=== PATIENT | female | born 1995 | race Caucasian/White ===

== ENCOUNTER 2020-04-26 15:27 | Inpatient (IN) | payer MEDICAID ==
[~2020-04-26] VITALS: Ht 157.5 cm; Wt 88.0 kg
[2020-04-26] MEDS ORDERED: OLAN5TAB40 PO (18:56)
[2020-04-26] MEDS ORDERED: SERT50TA12 PO (18:56)
[2020-04-26] MEDS ORDERED: QUET100T PO (18:56)
[2020-04-26] MEDS: LORazepam 2 MG TABLET PO PRN (19:57)
[2020-04-26] MEDS: HALOPERIDOL 5 MG TABLET PO PRN (19:57)
[2020-04-26] MEDS ORDERED: INFLUENZA VIRUS VACCINE QVS 2020-21 (6MO+)/PF 60 MCG/0.5 ML SYRINGE IM ONE (20:00)
[2020-04-26 20:03] VITALS: BP 140/90
[2020-04-26] MEDS: ZOLPIDEM TARTRATE 10 MG TABLET PO PRN (21:01)
[2020-04-27 04:13] VITALS: BP 100/60
[2020-04-27] MEDS ORDERED: DOCUSATE SODIUM 100 MG CAPSULE PO PRN (07:45)
[2020-04-27] MEDS ORDERED: CloNIDine HCL 0.1 MG TABLET PO PRN (07:45)
[2020-04-27] MEDS ORDERED: PETROLATUM,WHITE 28 GM JELLY TP PRN (07:45)
[2020-04-27] MEDS ORDERED: MAGNESIUM HYDROXIDE SUSPENSION 30 ML UDCUP PO PRN (07:45)
[2020-04-27] MEDS ORDERED: MAG HYDROX/AL HYDROX/SIMETH ES 30 ML SUSPENSION UDCUP PO PRN (07:45)
[2020-04-27] MEDS ORDERED: LOPERAMIDE HCL 2 MG CAPSULE PO PRN (07:45)
[2020-04-27] MEDS ORDERED: NICOTINE 14 MG/24 HOUR PATCH TD PRN (07:45)
[2020-04-27] MEDS ORDERED: GuaiFENesin/D-METHORPHAN [SUGAR-FREE] 200-20MG/10 ML SYRUP UDCUP PO PRN (07:45)
[2020-04-27] MEDS ORDERED: ONDANSETRON HCL 4 MG TABLET PO PRN (07:45)
[2020-04-27] MEDS ORDERED: ALBUTEROL SULFATE HFA 90 MCG/PUFF 8 GM INHALER IH PRN (07:45)
[2020-04-27] MEDS: ACETAMINOPHEN 325 MG TABLET PO PRN ×2 (08:48→17:32)
[2020-04-27 09:19] VITALS: BP 117/64
[2020-04-27] MEDS: SERTRALINE HCL 50 MG TABLET PO SCH (12:55)
[2020-04-27 16:24] VITALS: BP 120/70
[2020-04-27] MEDS: LORazepam 2 MG TABLET PO PRN (17:32)
[2020-04-27] MEDS: HALOPERIDOL 5 MG TABLET PO PRN (17:32)
[2020-04-27] MEDS: OLANZapine 10 MG RAPDIS TABLET PO SCH (20:20)
[2020-04-27] MEDS: ZOLPIDEM TARTRATE 10 MG TABLET PO PRN (20:29)
[2020-04-28] VITALS (10 sets, daily range): BP systolic 91–136; BP diastolic 60–80
[2020-04-28 07:37] LABS: BASOPHILS % (AUTO) 0.4 % (0.0-2.0); EOSINOPHILS % (AUTO) 1.8 % (1.0-6.0); HEMATOCRIT 39.2 % (36-46); HEMOGLOBIN 13.3 g/dL (12.0-16.0); LYMPHOCYTES # (AUTO) 1.8 K/uL (1.0-4.8); LYMPHOCYTES % (AUTO) 16.6 % (22.0-44.0); MEAN CORPUSCULAR HEMOGLOBIN 31.2 pg (26.0-34.0); MEAN CORPUSCULAR HGB CONC 33.9 G/dL (31.0-37.0); MEAN CORPUSCULAR VOLUME 92 fL (80-100); MONOCYTES # (AUTO) 0.8 K/uL (0.1-1.0); NEUTROPHILS # (AUTO) 8.2 K/uL (1.8-7.7); NEUTROPHILS % (AUTO) 74.2 % (40.0-70.0); PLATELET COUNT (AUTO) 370 K/uL (150-450); RED BLOOD CELL COUNT(AUTO) 4.26 MIL/uL (4.00-5.20); RED CELL DISTRIBUTION WIDTH 13.5 % (11.5-14.5)
[2020-04-28 08:19] LABS: ALANINE AMINOTRANSFERASE 115 U/L (12-78); ALBUMIN 3.6 g/dL (3.4-5.0); ALKALINE PHOSPHATASE 61 U/L (46-116); ANION GAP 5 mmol/L (8-16); ASPARTATE AMINOTRANSFERASE 54 U/L (15-37); BILIRUBIN,TOTAL 0.9 mg/dL (0.1-1.0); CARBON DIOXIDE 31 mmol/L (22-29); CHLORIDE 106 mmol/L (98-107); CHOL/HDL RATIO 2.9 (3.9-5.7); CHOLESTEROL 195 mg/dL (131-200); CREATININE 0.65 mg/dL (0.60-1.30); FREE T4 (FREE THYROXINE) 0.71 ng/dL (0.76-1.46); GLOMERULAR FILTR. RATE CALC > 60 mL/min (>60); GLUCOSE,RANDOM 90 mg/dL (70-110); HCG,QUANTITATIVE 2 mIU/mL (0-6); HDL CHOLESTEROL 67 mg/dL (40-60); LDL CHOL (CALC.) 105 mg/dL (0-130); POTASSIUM 4.1 mmol/L (3.5-5.1); SODIUM SERUM 142 mmol/L (136-145); TOTAL PROTEIN, SERUM 7.1 g/dL (6.4-8.2); TRIGLYCERIDES 115 mg/dL (15-150); UREA NITROGEN, BLOOD 12 mg/dL (7-18)
[2020-04-28] MEDS: SERTRALINE HCL 50 MG TABLET PO SCH (08:27)
[2020-04-28 08:29] LABS: HEMOGLOBIN A1C 5.1 % (3.8-5.6)
[2020-04-28 08:38] LABS: THYROID STIMULATING HORMONE 1.76 uIU/mL (0.36-3.74)
[2020-04-28] MEDS: LORazepam 2 MG TABLET PO PRN ×2 (08:48→17:20)
[2020-04-28] MEDS: ACETAMINOPHEN 325 MG TABLET PO PRN ×2 (11:51→19:07)
[2020-04-28] MEDS: IBUPROFEN 400 MG TABLET PO PRN (17:17)
[2020-04-28] MEDS: HALOPERIDOL 5 MG TABLET PO PRN (17:20)
[2020-04-28] MEDS: ZOLPIDEM TARTRATE 10 MG TABLET PO PRN (20:05)
[2020-04-28] MEDS: OLANZapine 10 MG RAPDIS TABLET PO SCH (20:13)
[2020-04-28] MEDS ORDERED: LORazepam 2 MG/ML VIAL IM ONE (20:15)
[2020-04-28] MEDS ORDERED: HALOPERIDOL LACTATE 5 MG/ML VIAL IM ONE (20:15)
[2020-04-28] MEDS ORDERED: DiphenhydrAMINE HCL 50 MG/ML VIAL IM ONE (20:15)
[2020-04-29 04:54] VITALS: BP 110/62
[2020-04-29 08:45] LABS: APPEARANCE,URINE CLOUDY (CLEAR); BILIRUBIN,URINE NEGATIVE (NEGATIVE); GLUCOSE, URINE (UA) NEGATIVE (NEGATIVE); KETONES,URINE NEGATIVE (NEGATIVE); LEUKOCYTE ESTERASE ,URINE NEGATIVE (NEGATIVE); NITRATE,URINE NEGATIVE (NEGATIVE); OCCULT BLOOD,URINE NEGATIVE (NEGATIVE); PROTEIN,URINE NEGATIVE (NEGATIVE); UROBILINOGEN,URINE 0.2 mg/dL (<=1.0)
[2020-04-29 08:47] LABS: AMPHET/METH SCREEN,URINE NEGATIVE (NEGATIVE); BARBITURATE SCREEN, URINE NEGATIVE (NEGATIVE); BENZODIAZEPINES SCREEN,URINE NEGATIVE (NEGATIVE); CANNABINOID SCREEN,URINE NEGATIVE (NEGATIVE); COCAINE SCREEN,URINE NEGATIVE (NEGATIVE); METHADONE SCREEN, URINE NEGATIVE (NEGATIVE); OPIATE SCREEN,URINE NEGATIVE (NEGATIVE)
[2020-04-29 08:50] LABS: PHENCYCLIDINE SCREEN,URINE NEGATIVE (NEGATIVE)
[2020-04-29] MEDS: LORazepam 2 MG TABLET PO PRN ×2 (09:01→18:34)
[2020-04-29] MEDS: SERTRALINE HCL 50 MG TABLET PO SCH (09:01)
[2020-04-29 09:08] LABS: AMORPHOUS SEDIMENT,UR Many /LPF (None Seen); BACTERIA,URINE None Seen /HPF (None Seen); RBC,URINE None Seen /HPF (0-2); SQUAMOUS EPITHELIAL CELL,UR Few /LPF (None Seen); WBC,URINE None Seen /HPF (0-5)
[2020-04-29] MEDS: ACETAMINOPHEN 325 MG TABLET PO PRN ×2 (12:26→17:49)
[2020-04-29 18:17] VITALS: BP 121/76
[2020-04-29] MEDS: OLANZapine 10 MG RAPDIS TABLET PO SCH (20:07)
[2020-04-29] MEDS: IBUPROFEN 400 MG TABLET PO PRN (20:07)
[2020-04-30 02:35] VITALS: BP 120/78
[2020-04-30] MEDS: LORazepam 2 MG TABLET PO PRN ×2 (09:22→16:10)
[2020-04-30] MEDS: SERTRALINE HCL 50 MG TABLET PO SCH (09:22)
[2020-04-30] MEDS: OLANZapine 5 MG TABLET PO SCH (09:22)
[2020-04-30] MEDS: ACETAMINOPHEN 325 MG TABLET PO PRN (09:23)
[2020-04-30 12:53] VITALS: BP 118/77
[2020-04-30 16:24] VITALS: BP 115/64
[2020-04-30] MEDS: ZOLPIDEM TARTRATE 10 MG TABLET PO PRN (20:09)
[2020-04-30] MEDS: OLANZapine 10 MG RAPDIS TABLET PO SCH (20:09)
[2020-05-01 00:17] VITALS: BP 111/74
[2020-05-01 08:29] VITALS: BP 100/53
[2020-05-01] MEDS: LORazepam 2 MG TABLET PO PRN ×3 (09:01→18:27)
[2020-05-01] MEDS: OLANZapine 5 MG TABLET PO SCH (09:01)
[2020-05-01] MEDS: SERTRALINE HCL 50 MG TABLET PO SCH (09:01)
[2020-05-01] MEDS: IBUPROFEN 400 MG TABLET PO PRN (09:45)
[2020-05-01] MEDS: ACETAMINOPHEN 325 MG TABLET PO PRN (13:11)
[2020-05-01 16:07] VITALS: BP 133/76
[2020-05-01] MEDS: HALOPERIDOL 5 MG TABLET PO PRN (16:27)
[2020-05-01] MEDS: OLANZapine 10 MG RAPDIS TABLET PO SCH (20:31)
[2020-05-01] MEDS: ZOLPIDEM TARTRATE 10 MG TABLET PO PRN (20:40)
[2020-05-02 02:14] VITALS: BP 124/71
[2020-05-02 08:21] VITALS: BP 121/79
[2020-05-02] MEDS: SERTRALINE HCL 50 MG TABLET PO SCH (08:42)
[2020-05-02] MEDS: OLANZapine 5 MG TABLET PO SCH (08:42)
[2020-05-02] MEDS: LORazepam 2 MG TABLET PO PRN (08:42)
[2020-05-02 10:01] VITALS: BP 140/72
[2020-05-02] MEDS: ACETAMINOPHEN 325 MG TABLET PO PRN (10:01)
[2020-05-02] MEDS ORDERED: OLAN10TA22 PO (11:09)
[2020-05-02] MEDS ORDERED: OLAN5TAB27 PO (11:09)
[2020-05-02] MEDS: IBUPROFEN 400 MG TABLET PO PRN (13:12)
== END 2020-05-02 15:00 | disposition home or self-care (01) | DRG 750 ==
LOC: B3A 19:06
PROC: 3E0234Z Introduction of Serum, Toxoid and Vaccine into Muscle, Percutaneous Approach (ICD-10-PCS; principal; 2020-04-27)
DX: F25.1 Schizoaffective disorder, depressive type (principal); D72.829 Elevated white blood cell count, unspecified; F10.10 Alcohol abuse, uncomplicated; R45.851 Suicidal ideations; Z79.899 Other long term (current) drug therapy; R74.01 Elevation of levels of liver transaminase levels; F19.10 Other psychoactive substance abuse, uncomplicated; R00.0 Tachycardia, unspecified; Z23 Encounter for immunization
CPT/HCPCS: 80307; 83036; 84439; 84443; 90686; J1200; J1630; J2060

== ENCOUNTER 2020-05-26 01:04 | Inpatient (IN) | payer MEDICAID ==
[~2020-05-26 01:04] MED LIST: OLAN10TA22 PO; OLAN5TAB27 PO; SERT50TA12 PO
[2020-05-27 04:37] VITALS: BP 114/72
[2020-05-27] MEDS ORDERED: MAG HYDROX/AL HYDROX/SIMETH ES 30 ML SUSPENSION UDCUP PO PRN (06:45)
[2020-05-27] MEDS ORDERED: LOPERAMIDE HCL 2 MG CAPSULE PO PRN (06:45)
[2020-05-27] MEDS ORDERED: DOCUSATE SODIUM 100 MG CAPSULE PO PRN (06:45)
[2020-05-27] MEDS ORDERED: GuaiFENesin/D-METHORPHAN [SUGAR-FREE] 200-20MG/10 ML SYRUP UDCUP PO PRN (06:45)
[2020-05-27] MEDS ORDERED: PETROLATUM,WHITE 28 GM JELLY TP PRN (06:45)
[2020-05-27] MEDS ORDERED: MAGNESIUM HYDROXIDE SUSPENSION 30 ML UDCUP PO PRN (06:45)
[2020-05-27] MEDS ORDERED: ONDANSETRON HCL 4 MG TABLET PO PRN (06:45)
[2020-05-27] MEDS ORDERED: IBUPROFEN 400 MG TABLET PO PRN (06:45)
[2020-05-27] MEDS ORDERED: ALBUTEROL SULFATE HFA 90 MCG/PUFF 8 GM INHALER IH PRN (06:45)
[2020-05-27] MEDS ORDERED: NICOTINE 14 MG/24 HOUR PATCH TD PRN (06:45)
[2020-05-27] MEDS ORDERED: CloNIDine HCL 0.1 MG TABLET PO PRN (06:45)
[2020-05-27 08:36] VITALS: BP 105/67
[2020-05-27] MEDS: OLANZapine 5 MG TABLET PO SCH (12:38)
[2020-05-27] MEDS: SERTRALINE HCL 50 MG TABLET PO SCH (12:38)
[2020-05-27 16:06] VITALS: BP 110/72
[2020-05-27] MEDS: OLANZapine 10 MG RAPDIS TABLET PO SCH (20:07)
[2020-05-28 01:03] VITALS: BP 105/74
[2020-05-28 07:38] LABS: BASOPHILS % (AUTO) 0.4 % (0.0-2.0); EOSINOPHILS % (AUTO) 2.7 % (1.0-6.0); HEMATOCRIT 38.2 % (36-46); HEMOGLOBIN 13.3 g/dL (12.0-16.0); LYMPHOCYTES % (AUTO) 23.5 % (22.0-44.0); MEAN CORPUSCULAR HEMOGLOBIN 31.9 pg (26.0-34.0); MEAN CORPUSCULAR HGB CONC 34.7 G/dL (31.0-37.0); MEAN CORPUSCULAR VOLUME 92 fL (80-100); MONOCYTES # (AUTO) 0.5 K/uL (0.1-1.0); NEUTROPHILS # (AUTO) 5.7 K/uL (1.8-7.7); NEUTROPHILS % (AUTO) 67.4 % (40.0-70.0); PLATELET COUNT (AUTO) 377 K/uL (150-450); RED BLOOD CELL COUNT(AUTO) 4.16 MIL/uL (4.00-5.20); RED CELL DISTRIBUTION WIDTH 13.1 % (11.5-14.5)
[2020-05-28 08:14] VITALS: BP 107/67
[2020-05-28 08:26] LABS: ALANINE AMINOTRANSFERASE 45 U/L (12-78); ALBUMIN 3.4 g/dL (3.4-5.0); ALKALINE PHOSPHATASE 66 U/L (46-116); ANION GAP 10 mmol/L (8-16); ASPARTATE AMINOTRANSFERASE 28 U/L (15-37); BILIRUBIN,TOTAL 0.7 mg/dL (0.1-1.0); CARBON DIOXIDE 26 mmol/L (22-29); CHLORIDE 104 mmol/L (98-107); CHOL/HDL RATIO 3.3 (3.9-5.7); CHOLESTEROL 171 mg/dL (131-200); CREATININE 0.68 mg/dL (0.60-1.30); FREE T4 (FREE THYROXINE) 0.91 ng/dL (0.76-1.46); GLOMERULAR FILTR. RATE CALC > 60 mL/min (>60); GLUCOSE,RANDOM 90 mg/dL (70-110); HCG,QUANTITATIVE 1 mIU/mL (0-6); HDL CHOLESTEROL 52 mg/dL (40-60); LDL CHOL (CALC.) 96 mg/dL (0-130); POTASSIUM 4.2 mmol/L (3.5-5.1); SODIUM SERUM 140 mmol/L (136-145); THYROID STIMULATING HORMONE 1.43 uIU/mL (0.36-3.74); TOTAL PROTEIN, SERUM 7.2 g/dL (6.4-8.2); TRIGLYCERIDES 116 mg/dL (15-150); UREA NITROGEN, BLOOD 9 mg/dL (7-18)
[2020-05-28] MEDS: SERTRALINE HCL 50 MG TABLET PO SCH (08:33)
[2020-05-28] MEDS: OLANZapine 5 MG TABLET PO SCH (08:33)
[2020-05-28] MEDS ORDERED: HALOPERIDOL 5 MG TABLET PO PRN (09:15)
[2020-05-28] MEDS ORDERED: LORazepam 2 MG TABLET PO PRN (09:15)
[2020-05-28] MEDS ORDERED: ZOLPIDEM TARTRATE 10 MG TABLET PO PRN (09:15)
[2020-05-28 16:25] VITALS: BP 112/71
[2020-05-28] MEDS: ACETAMINOPHEN 325 MG TABLET PO PRN (16:25)
[2020-05-28 16:31] VITALS: BP 112/71
[2020-05-28] MEDS: OLANZapine 10 MG RAPDIS TABLET PO SCH (20:04)
[2020-05-29 01:47] VITALS: BP 104/68
[2020-05-29] MEDS: OLANZapine 5 MG TABLET PO SCH (08:02)
[2020-05-29] MEDS: SERTRALINE HCL 50 MG TABLET PO SCH (08:02)
[2020-05-29 08:07] VITALS: BP 121/74
[2020-05-29] MEDS: ACETAMINOPHEN 325 MG TABLET PO PRN (15:45)
[2020-05-29 16:29] VITALS: BP 109/73
[2020-05-29] MEDS: OLANZapine 10 MG RAPDIS TABLET PO SCH (19:28)
[2020-05-30 01:17] VITALS: BP 100/78
[2020-05-30 08:12] VITALS: BP 107/67
[2020-05-30] MEDS: OLANZapine 5 MG TABLET PO SCH (08:13)
[2020-05-30] MEDS: SERTRALINE HCL 50 MG TABLET PO SCH (08:13)
[2020-05-30] MEDS ORDERED: GABAPENTIN 300 MG CAPSULE PO SCH (10:30)
[2020-05-30] MEDS: ACETAMINOPHEN 325 MG TABLET PO PRN (10:45)
[2020-05-30] MEDS ORDERED: OLAN10TA6 PO (11:12)
[2020-05-30] MEDS ORDERED: OLAN5TAB40 PO (11:12)
== END 2020-05-30 15:00 | disposition home or self-care (01) | DRG 750 ==
LOC: B3A 05-27 02:55
DX: F25.1 Schizoaffective disorder, depressive type (principal); R45.851 Suicidal ideations; F41.0 Panic disorder [episodic paroxysmal anxiety]; J30.9 Allergic rhinitis, unspecified; Z79.899 Other long term (current) drug therapy; Z91.5 Personal history of self-harm; J30.2 Other seasonal allergic rhinitis; F10.10 Alcohol abuse, uncomplicated; Y90.9 Presence of alcohol in blood, level not specified; R07.81 Pleurodynia
CPT/HCPCS: 83036; 84436; 84439; 84443; 87081; G0480

== ENCOUNTER 2022-01-10 07:55 | Inpatient (IN) | payer OTHER, MEDICAID ==
[~2022-01-10] VITALS: Ht 162.6 cm; Wt 83.5 kg
[~2022-01-10 07:55] MED LIST changes: -OLAN10TA22 PO; +OLAN10TA26 PO; -OLAN5TAB27 PO; +OLAN5TAB94 PO; +SERT-158 PO; -SERT50TA12 PO
[2022-01-10] MEDS ORDERED: HALOPERIDOL 5 MG TABLET PO PRN (09:15)
[2022-01-10] MEDS ORDERED: ZOLPIDEM TARTRATE 10 MG TABLET PO PRN (09:15)
[2022-01-10] MEDS ORDERED: ONDANSETRON HCL 4 MG TABLET PO PRN (09:45)
[2022-01-10] MEDS ORDERED: OMEPRAZOLE 20 MG CAPSULE PO PRN (09:45)
[2022-01-10] MEDS ORDERED: ALBUTEROL SULFATE HFA 90 MCG/PUFF 8 GM INHALER IH PRN (09:45)
[2022-01-10] MEDS ORDERED: ACETAMINOPHEN 325 MG TABLET PO PRN (09:45)
[2022-01-10] MEDS ORDERED: MAGNESIUM HYDROXIDE SUSPENSION 30 ML UDCUP PO PRN (09:45)
[2022-01-10] MEDS ORDERED: BACITRACIN 28 GM OINTMENT TP PRN (09:45)
[2022-01-10] MEDS ORDERED: PETROLATUM,WHITE 28 GM JELLY TP PRN (09:45)
[2022-01-10] MEDS ORDERED: LOPERAMIDE HCL 2 MG CAPSULE PO PRN (09:45)
[2022-01-10] MEDS ORDERED: CloNIDine HCL 0.1 MG TABLET PO PRN (09:45)
[2022-01-10] MEDS ORDERED: MAG HYDROX/AL HYDROX/SIMETH ES 30 ML SUSPENSION UDCUP PO PRN (09:45)
[2022-01-10] MEDS ORDERED: IBUPROFEN 600 MG TABLET PO PRN (09:45)
[2022-01-10] MEDS ORDERED: DOCUSATE SODIUM 100 MG CAPSULE PO PRN (09:45)
[2022-01-10] MEDS ORDERED: BENZOCAINE/MENTHOL LOZENGE PO PRN (09:45)
[2022-01-10 11:02] VITALS: BP 114/59
[2022-01-11 00:58] VITALS: BP 113/73
[2022-01-11] MEDS: LORazepam 2 MG TABLET PO PRN (08:17)
[2022-01-11 08:20] LABS: BASOPHILS % (AUTO) 0.4 % (0.0-2.0); EOSINOPHILS % (AUTO) 2.4 % (1.0-6.0); HEMOGLOBIN 13.3 g/dL (12.0-16.0); LYMPHOCYTES % (AUTO) 29.9 % (22.0-44.0); MEAN CORPUSCULAR HEMOGLOBIN 31.2 pg (26.0-34.0); MEAN CORPUSCULAR HGB CONC 34.1 G/dL (31.0-37.0); MEAN CORPUSCULAR VOLUME 91 fL (80-100); MONOCYTES # (AUTO) 0.4 K/uL (0.1-1.0); MONOCYTES % (AUTO) 5.7 % (2.0-9.0); NEUTROPHILS # (AUTO) 4.2 K/uL (1.8-7.7); NEUTROPHILS % (AUTO) 61.6 % (40.0-70.0); PLATELET COUNT (AUTO) 388 K/uL (150-450); RED BLOOD CELL COUNT(AUTO) 4.27 MIL/uL (4.00-5.20); RED CELL DISTRIBUTION WIDTH 13.2 % (11.5-14.5)
[2022-01-11 08:24] LABS: HEMOGLOBIN A1C 5.2 % (3.8-5.6)
[2022-01-11 08:41] VITALS: BP 104/71
[2022-01-11 08:53] LABS: ALANINE AMINOTRANSFERASE 42 U/L (12-78); ALBUMIN 3.5 g/dL (3.4-5.0); ALKALINE PHOSPHATASE 65 U/L (46-116); ANION GAP 7 mmol/L (8-16); ASPARTATE AMINOTRANSFERASE 23 U/L (15-37); BILIRUBIN,TOTAL 0.6 mg/dL (0.1-1.0); CALCIUM, TOTAL 9.1 mg/dL (8.8-10.5); CARBON DIOXIDE 29 mmol/L (22-29); CHLORIDE 106 mmol/L (98-107); CHOL/HDL RATIO 2.9 (3.9-5.7); CHOLESTEROL 148 mg/dL (131-200); CREATININE 0.64 mg/dL (0.60-1.30); FREE T4 (FREE THYROXINE) 0.98 ng/dL (0.76-1.46); GLUCOSE,RANDOM 82 mg/dL (70-110); HCG,QUANTITATIVE < 1 mIU/mL (0-6); HDL CHOLESTEROL 51 mg/dL (40-60); LDL CHOL (CALC.) 82 mg/dL (0-130); POTASSIUM 4.7 mmol/L (3.5-5.1); SODIUM SERUM 142 mmol/L (136-145); THYROID STIMULATING HORMONE 1.06 uIU/mL (0.36-3.74); TRIGLYCERIDES 73 mg/dL (15-150); UREA NITROGEN, BLOOD 8 mg/dL (7-18)
[2022-01-11 09:28] LABS: GLOMERULAR FILTR. RATE CALC > 60 mL/min (>60)
[2022-01-11 17:01] LABS: GLUCOMETER DEV NAME(LOC) POC.BV
[2022-01-11 17:40] VITALS: BP 98/61
[2022-01-11] MEDS: OLANZapine 7.5 MG TABLET PO SCH (20:10)
[2022-01-12 06:24] VITALS: BP 109/64
[2022-01-12 08:25] VITALS: BP 121/64
[2022-01-12] MEDS: LORazepam 2 MG TABLET PO PRN ×2 (08:30→16:10)
[2022-01-12 16:14] VITALS: BP 112/65
[2022-01-12] MEDS: OLANZapine 7.5 MG TABLET PO SCH (20:40)
[2022-01-13 05:46] VITALS: BP 102/63
[2022-01-13 08:46] VITALS: BP 108/76
[2022-01-13] MEDS: LORazepam 2 MG TABLET PO PRN (09:07)
[2022-01-13] MEDS ORDERED: OLAN7.5T22 PO (12:33)
== END 2022-01-13 13:45 | disposition home or self-care (01) | DRG 885 ==
LOC: B2S 09:08
PROVIDERS: ADMIT Psychiatry & Neurology Psychiatry; ATTEND Psychiatry & Neurology Psychiatry
DX: F25.9 Schizoaffective disorder, unspecified (principal); R45.851 Suicidal ideations; J31.0 Chronic rhinitis; F12.90 Cannabis use, unspecified, uncomplicated; K59.00 Constipation, unspecified; F41.9 Anxiety disorder, unspecified; Z20.822 Contact with and (suspected) exposure to COVID-19; G47.00 Insomnia, unspecified; Z56.0 Unemployment, unspecified; Z72.0 Tobacco use; Z71.6 Tobacco abuse counseling
CPT/HCPCS: 80053; 80061; 83036; 84436; 84439; 84443; 84702; 85025; 86592; G0480

== ENCOUNTER 2022-07-25 20:02 | Inpatient (IN) | payer MEDICAID ==
[~2022-07-25] VITALS: Ht 162.6 cm; Wt 79.8 kg
[~2022-07-25 20:02] MED LIST changes: -OLAN10TA26 PO; -OLAN5TAB94 PO; +OLAN7.5T22 PO; -SERT-158 PO
[2022-07-26] MEDS ORDERED: HALOPERIDOL 5 MG TABLET PO PRN (09:30)
[2022-07-26] MEDS ORDERED: ZOLPIDEM TARTRATE 10 MG TABLET PO PRN (09:30)
[2022-07-26 10:00] VITALS: BP 111/66
[2022-07-26] MEDS ORDERED: INFLUENZA VIRUS VACCINE QVS 2022-23 (6MO+)/PF 60 MCG/0.5 ML SYRINGE IM. ONE (11:00)
[2022-07-26] MEDS ORDERED: PNEUMOCOCCAL VACCINE POLYVALENT 0.5 ML VIAL [PPSV23] IM. ONE (11:15)
[2022-07-26] MEDS: LORazepam 2 MG TABLET PO PRN (15:56)
[2022-07-26 20:27] VITALS: BP 104/68
[2022-07-27 09:14] VITALS: BP 106/66
[2022-07-27] MEDS: LORazepam 2 MG TABLET PO PRN (12:13)
[2022-07-27] MEDS: DIVALPROEX SODIUM 500 MG DR TABLET PO SCH (20:09)
[2022-07-27] MEDS: RisperiDONE 1 MG TABLET PO SCH (20:09)
[2022-07-27] MEDS: LITHIUM CARBONATE 300 MG CAPSULE PO SCH (20:09)
[2022-07-27 20:27] VITALS: BP 119/76
[2022-07-28] MEDS: DIVALPROEX SODIUM 500 MG DR TABLET PO SCH (08:00)
[2022-07-28] MEDS: LORazepam 2 MG TABLET PO PRN (08:00)
[2022-07-28] MEDS: RisperiDONE 1 MG TABLET PO SCH (08:00)
[2022-07-28] MEDS: LITHIUM CARBONATE 300 MG CAPSULE PO SCH (08:00)
[2022-07-28 08:11] VITALS: BP 108/71
[2022-07-28 08:26] LABS: APPEARANCE,URINE CLEAR (CLEAR); BILIRUBIN,URINE NEGATIVE (NEGATIVE); GLUCOSE, URINE (UA) NEGATIVE (NEGATIVE); KETONES,URINE NEGATIVE (NEGATIVE); LEUKOCYTE ESTERASE ,URINE NEGATIVE (NEGATIVE); NITRATE,URINE NEGATIVE (NEGATIVE); OCCULT BLOOD,URINE NEGATIVE (NEGATIVE); PROTEIN,URINE NEGATIVE (NEGATIVE); SPECIFIC GRAVITIY, URINE 1.008 (1.003-1.030); UROBILINOGEN,URINE <=1.0 mg/dL (<=1.0)
[2022-07-28 08:30] LABS: AMPHET/METH SCREEN,URINE NEGATIVE (NEGATIVE); BARBITURATE SCREEN, URINE NEGATIVE (NEGATIVE); BENZODIAZEPINES SCREEN,URINE NEGATIVE (NEGATIVE); CANNABINOID SCREEN,URINE NEGATIVE (NEGATIVE); COCAINE SCREEN,URINE NEGATIVE (NEGATIVE); METHADONE SCREEN, URINE NEGATIVE (NEGATIVE); OPIATE SCREEN,URINE NEGATIVE (NEGATIVE)
[2022-07-28 08:43] LABS: PHENCYCLIDINE SCREEN,URINE NEGATIVE (NEGATIVE)
[2022-07-28 08:44] LABS: HEMOGLOBIN A1C 5.3 % (3.8-5.6)
[2022-07-28 09:18] LABS: BASOPHILS % (AUTO) 0.4 % (0.0-2.0); EOSINOPHILS % (AUTO) 1.6 % (1.0-6.0); HEMATOCRIT 38.7 % (36-46); HEMOGLOBIN 12.8 g/dL (12.0-16.0); LYMPHOCYTES # (AUTO) 1.7 K/uL (1.0-4.8); LYMPHOCYTES % (AUTO) 15.5 % (22.0-44.0); MEAN CORPUSCULAR HGB CONC 33.2 G/dL (31.0-37.0); MEAN CORPUSCULAR VOLUME 94 fL (80-100); MONOCYTES # (AUTO) 0.6 K/uL (0.1-1.0); MONOCYTES % (AUTO) 5.8 % (2.0-9.0); NEUTROPHILS # (AUTO) 8.6 K/uL (1.8-7.7); NEUTROPHILS % (AUTO) 76.7 % (40.0-70.0); PLATELET COUNT (AUTO) 332 K/uL (150-450); RED BLOOD CELL COUNT(AUTO) 4.14 MIL/uL (4.00-5.20); RED CELL DISTRIBUTION WIDTH 13.3 % (11.5-14.5)
[2022-07-28 09:48] LABS: ALANINE AMINOTRANSFERASE 25 U/L (12-78); ALBUMIN 3.6 g/dL (3.4-5.0); ALKALINE PHOSPHATASE 69 U/L (46-116); ANION GAP 6 mmol/L (8-16); ASPARTATE AMINOTRANSFERASE 11 U/L (15-37); BILIRUBIN,TOTAL 0.2 mg/dL (0.1-1.0); CALCIUM, TOTAL 8.9 mg/dL (8.8-10.5); CARBON DIOXIDE 26 mmol/L (22-29); CHLORIDE 104 mmol/L (98-107); CHOL/HDL RATIO 2.9 (3.9-5.7); CHOLESTEROL 143 mg/dL (131-200); CREATININE 0.75 mg/dL (0.60-1.30); FREE T4 (FREE THYROXINE) 1.03 ng/dL (0.76-1.46); GLUCOSE,RANDOM 80 mg/dL (70-110); HCG,QUANTITATIVE < 1 mIU/mL (0-6); HDL CHOLESTEROL 49 mg/dL (40-60); LDL CHOL (CALC.) 62 mg/dL (0-130); POTASSIUM 4.4 mmol/L (3.5-5.1); SODIUM SERUM 136 mmol/L (136-145); THYROID STIMULATING HORMONE 2.79 uIU/mL (0.36-3.74); TOTAL PROTEIN, SERUM 7.1 g/dL (6.4-8.2); TRIGLYCERIDES 158 mg/dL (15-150); UREA NITROGEN, BLOOD 10 mg/dL (7-18)
[2022-07-28 09:49] LABS: GLOMERULAR FILTR. RATE CALC > 60 mL/min (>60)
== END 2022-07-29 00:22 | disposition left against medical advice (07) | DRG 750 ==
LOC: B2S 07-26 09:53
PROVIDERS: ADMIT Psychiatry & Neurology Psychiatry; ATTEND Psychiatry & Neurology Psychiatry
DX: F25.9 Schizoaffective disorder, unspecified (principal); R45.851 Suicidal ideations; F32.A Depression, unspecified; F41.9 Anxiety disorder, unspecified; G47.00 Insomnia, unspecified; K59.00 Constipation, unspecified; F10.10 Alcohol abuse, uncomplicated; F17.210 Nicotine dependence, cigarettes, uncomplicated; Z79.899 Other long term (current) drug therapy
CPT/HCPCS: 80053; 80061; 80307; 81003; 83036; 84436; 84439; 84443; 84702; 85025; 86592; 90686; 90732; G0480

== ENCOUNTER 2022-08-03 01:50 | Inpatient (IN) | payer MEDICAID ==
[~2022-08-03] VITALS: Ht 165.1 cm; Wt 82.6 kg
[2022-08-03] MEDS ORDERED: ZOLPIDEM TARTRATE 10 MG TABLET PO PRN (09:30)
[2022-08-03 10:50] VITALS: BP 102/64
[2022-08-03] MEDS: LORazepam 2 MG TABLET PO PRN (11:21)
[2022-08-03] MEDS: HALOPERIDOL 5 MG TABLET PO PRN (11:21)
[2022-08-03] MEDS ORDERED: INFLUENZA VIRUS VACCINE QVS 2022-23 (6MO+)/PF 60 MCG/0.5 ML SYRINGE IM. ONE (11:45)
[2022-08-03 18:54] VITALS: BP 115/78
[2022-08-03 20:10] VITALS: BP 112/64
[2022-08-04 06:59] LABS: BASOPHILS % (AUTO) 0.4 % (0.0-2.0); EOSINOPHILS % (AUTO) 2.2 % (1.0-6.0); HEMATOCRIT 36.1 % (36-46); HEMOGLOBIN 12.7 g/dL (12.0-16.0); LYMPHOCYTES % (AUTO) 21.9 % (22.0-44.0); MEAN CORPUSCULAR HEMOGLOBIN 32.2 pg (26.0-34.0); MEAN CORPUSCULAR HGB CONC 35.2 G/dL (31.0-37.0); MEAN CORPUSCULAR VOLUME 92 fL (80-100); MONOCYTES # (AUTO) 0.5 K/uL (0.1-1.0); MONOCYTES % (AUTO) 5.5 % (2.0-9.0); NEUTROPHILS # (AUTO) 6.3 K/uL (1.8-7.7); PLATELET COUNT (AUTO) 323 K/uL (150-450); RED BLOOD CELL COUNT(AUTO) 3.94 MIL/uL (4.00-5.20); RED CELL DISTRIBUTION WIDTH 13.1 % (11.5-14.5)
[2022-08-04 07:33] LABS: ALANINE AMINOTRANSFERASE 55 U/L (12-78); ALBUMIN 3.4 g/dL (3.4-5.0); ALKALINE PHOSPHATASE 68 U/L (46-116); ANION GAP 8 mmol/L (8-16); ASPARTATE AMINOTRANSFERASE 17 U/L (15-37); BILIRUBIN,TOTAL 0.2 mg/dL (0.1-1.0); CALCIUM, TOTAL 8.5 mg/dL (8.8-10.5); CARBON DIOXIDE 25 mmol/L (22-29); CHLORIDE 106 mmol/L (98-107); FREE T4 (FREE THYROXINE) 0.81 ng/dL (0.76-1.46); GLUCOSE,RANDOM 96 mg/dL (70-110); HCG,QUANTITATIVE < 1 mIU/mL (0-6); POTASSIUM 4.4 mmol/L (3.5-5.1); SODIUM SERUM 139 mmol/L (136-145); UREA NITROGEN, BLOOD 11 mg/dL (7-18)
[2022-08-04 07:36] LABS: GLOMERULAR FILTR. RATE CALC > 60 mL/min (>60)
[2022-08-04 08:09] VITALS: BP 110/71
[2022-08-04] MEDS: DIVALPROEX SODIUM 500 MG DR TABLET PO SCH ×2 (08:09→20:10)
[2022-08-04] MEDS: RisperiDONE 1 MG TABLET PO SCH ×2 (08:09→20:10)
[2022-08-04] MEDS: LITHIUM CARBONATE 300 MG CAPSULE PO SCH ×2 (08:09→20:10)
[2022-08-04] MEDS: LORazepam 2 MG TABLET PO PRN (12:37)
[2022-08-04] MEDS ORDERED: BACITRACIN 28 GM OINTMENT TP PRN (19:30)
[2022-08-04] MEDS ORDERED: OMEPRAZOLE 20 MG CAPSULE PO PRN (19:30)
[2022-08-04] MEDS ORDERED: DOCUSATE SODIUM 100 MG CAPSULE PO PRN (19:30)
[2022-08-04] MEDS ORDERED: PETROLATUM,WHITE 28 GM JELLY TP PRN (19:30)
[2022-08-04] MEDS ORDERED: MAGNESIUM HYDROXIDE SUSPENSION 30 ML UDCUP PO PRN (19:30)
[2022-08-04] MEDS ORDERED: ALBUTEROL SULFATE HFA 90 MCG/PUFF 8 GM INHALER IH PRN (19:30)
[2022-08-04] MEDS ORDERED: MAG HYDROX/AL HYDROX/SIMETH ES 30 ML SUSPENSION UDCUP PO PRN (19:30)
[2022-08-04] MEDS ORDERED: BENZOCAINE/MENTHOL LOZENGE PO PRN (19:30)
[2022-08-04] MEDS ORDERED: ACETAMINOPHEN 325 MG TABLET PO PRN (19:30)
[2022-08-04] MEDS ORDERED: ONDANSETRON HCL 4 MG TABLET PO PRN (19:30)
[2022-08-04] MEDS ORDERED: LOPERAMIDE HCL 2 MG CAPSULE PO PRN (19:30)
[2022-08-04] MEDS ORDERED: CloNIDine HCL 0.1 MG TABLET PO PRN (19:30)
[2022-08-04] MEDS ORDERED: IBUPROFEN 600 MG TABLET PO PRN (19:30)
[2022-08-04 20:03] VITALS: BP 110/69
[2022-08-05 06:45] LABS: APPEARANCE,URINE TURBID (CLEAR); BILIRUBIN,URINE NEGATIVE (NEGATIVE); GLUCOSE, URINE (UA) NEGATIVE (NEGATIVE); KETONES,URINE NEGATIVE (NEGATIVE); LEUKOCYTE ESTERASE ,URINE NEGATIVE (NEGATIVE); NITRATE,URINE NEGATIVE (NEGATIVE); OCCULT BLOOD,URINE NEGATIVE (NEGATIVE); PH,URINE 5.5 (5.0-8.0); PROTEIN,URINE NEGATIVE (NEGATIVE); SPECIFIC GRAVITIY, URINE 1.022 (1.003-1.030); UROBILINOGEN,URINE <=1.0 mg/dL (<=1.0)
[2022-08-05 06:51] LABS: AMPHET/METH SCREEN,URINE POSITIVE (NEGATIVE); BARBITURATE SCREEN, URINE NEGATIVE (NEGATIVE); BENZODIAZEPINES SCREEN,URINE NEGATIVE (NEGATIVE); CANNABINOID SCREEN,URINE POSITIVE (NEGATIVE); COCAINE SCREEN,URINE NEGATIVE (NEGATIVE); METHADONE SCREEN, URINE NEGATIVE (NEGATIVE); OPIATE SCREEN,URINE NEGATIVE (NEGATIVE)
[2022-08-05 06:53] LABS: PHENCYCLIDINE SCREEN,URINE NEGATIVE (NEGATIVE)
[2022-08-05] MEDS: LORazepam 2 MG TABLET PO PRN ×2 (08:12→17:52)
[2022-08-05] MEDS: LITHIUM CARBONATE 300 MG CAPSULE PO SCH ×2 (09:30→21:15)
[2022-08-05] MEDS: DIVALPROEX SODIUM 500 MG DR TABLET PO SCH ×2 (09:30→21:15)
[2022-08-05] MEDS: RisperiDONE 1 MG TABLET PO SCH ×2 (09:30→21:15)
[2022-08-05 10:05] VITALS: BP 125/74
[2022-08-05] MEDS: HALOPERIDOL 5 MG TABLET PO PRN (17:52)
[2022-08-05 21:10] VITALS: BP 122/79
[2022-08-06 08:57] VITALS: BP 106/64
[2022-08-06] MEDS: LITHIUM CARBONATE 300 MG CAPSULE PO SCH ×2 (09:12→20:18)
[2022-08-06] MEDS: RisperiDONE 1 MG TABLET PO SCH ×2 (09:12→20:18)
[2022-08-06] MEDS: DIVALPROEX SODIUM 500 MG DR TABLET PO SCH ×2 (09:12→20:18)
[2022-08-06] MEDS: LORazepam 2 MG TABLET PO PRN (15:00)
[2022-08-06 20:03] VITALS: BP 110/63
[2022-08-07 08:41] LABS: LITHIUM 0.25 mmol/L (0.60-1.20)
[2022-08-07] MEDS: RisperiDONE 1 MG TABLET PO SCH (08:48)
[2022-08-07] MEDS: LITHIUM CARBONATE 300 MG CAPSULE PO SCH (08:48)
[2022-08-07] MEDS: DIVALPROEX SODIUM 500 MG DR TABLET PO SCH (08:48)
[2022-08-07 09:07] VITALS: BP 116/63
[2022-08-07] MEDS ORDERED: DIVA-112 PO ×2 (15:28→15:34)
[2022-08-07] MEDS ORDERED: LITH300C3 PO ×2 (15:28→15:32)
[2022-08-07] MEDS ORDERED: RISP1TAB98 PO (15:28)
[2022-08-07] MEDS ORDERED: RISP0.5T39 PO (15:33)
== END 2022-08-07 15:20 | disposition home or self-care (01) | DRG 753 ==
LOC: B2S 09:35
PROVIDERS: ADMIT Psychiatry & Neurology Psychiatry; ATTEND Psychiatry & Neurology Psychiatry
DX: F31.9 Bipolar disorder, unspecified (principal); R45.851 Suicidal ideations; F20.9 Schizophrenia, unspecified; F41.9 Anxiety disorder, unspecified; G47.00 Insomnia, unspecified; K59.00 Constipation, unspecified; F10.10 Alcohol abuse, uncomplicated; F17.210 Nicotine dependence, cigarettes, uncomplicated; Z79.899 Other long term (current) drug therapy
CPT/HCPCS: 80053; 80164; 80178; 80307; 81003; 84439; 84702; 85025; 87081